=== PATIENT | male | born 1995 | race Caucasian/White ===

== ENCOUNTER 2016-07-10 21:48 | Emergency (ER) | payer SELFPAY ==
--- NOTE | 2016-07-10 23:45 | ERNOTE ---
Medical Problem HPI - General Chief Complaint: General Assessment Time Seen by Provider: 07/10/16 23:36 Source: patient Exam Limitations: no limitations - Immun/Allergies/Home Medications Immunizations: IMMUNIZATION HX Immunizations Up to Date Yes History of Influenza Vaccine No Hx Pneumococcal Vaccination No Allergies/Adverse Reactions: Allergies No Known Allergies Allergy (Verified 01/24/16 23:59) Home Medications: HOME MEDICATIONS Meloxicam [Mobic] 15 mg PO DAILY #30 tab 07/11/16 [Last Taken Unknown] - History of Present History Narrative: left upper chest wall pain since November or longer. Worse with activity/ movement of left arm Timing: getting worse Severity: moderate Modifying Factors - (Worsens): Present: movement Review of Systems - Review of Systems Constitutional: Present: no symptoms reported EYE: Present: no symptoms reported ENT: Present: no symptoms reported Respiratory: Present: cough. Absent: shortness of breath Cardiology: Present: See HPI Gastrointestinal/Abdominal: Present: no symptoms reported Genitourinary: Present: no symptoms reported Musculoskeletal: Absent: back pain, neck pain Neurological: Present: no symptoms reported Endocrine: Present: no symptoms reported Hematologic/Lymphatic: Present: no symptoms reported Psych: Present: no symptoms reported - Patient's Past Medical History Patient History - Medical: No pertinent hx Patient History - Cardiac/Respiratory: Pneumonia Patient History - Cancer: No Hx of Cancer Patient History - Surgical Procedures: EGD, Ear Tubes, Other Patient History - Other: None - Social History Living Situations: home Abuse History: No History of abuse Psych History: No pertinent hx Does anyone smoke in the home?: Yes Smoking Status: Former smoker Have you smoked in the past 12 months: Yes Do you dip or chew tobacco: No Patient requests Smoking Cessation Consult: No Initiate information on Smoking Cessation: No Alcohol Use: none Drug Use: none - Immunizations Immunizations Up to Date: Yes Hx Pneumococcal Vaccination: No History of Influenza Vaccine: No Physical Exam - Physical Exam General Appearance: Present: wd/wn, alert, no apparent distress Eye Exam: Normal inspection: bilateral, PERRL: bilateral Neck: Present: normal inspection, nontender, supple Respiratory: Present: no respiratory distress, normal breath sounds, no accessory muscle use, lungs clear Cardiovascular/Chest: Present: regular rate, rhythm, no murmur, normal peripheral pulses Gastrointestinal/Abdominal: Present: normal bowel sounds, nontender, nondistended Back Exam: Present: normal inspection, normal range of motion Extremity Exam: Present: normal inspection, normal range of motion, no edema Neurological Exam: Present: alert, oriented, normal mood/affect, no motor/ sensory deficits Skin Exam: Present: normal color, warm/dry Lymphatic Exam: Present: no adenopathy ED Progress - Vital Signs Vital Signs: Vital Signs 07/10/16 07/10/16 21:55 23:19 Temperature 36.5 C 36.6 C Pulse Rate 78 82 Respiratory 18 18 Rate Blood Pressure 114/67 133/64 O2 Sat by Pulse 98 97 Oximetry - X-Ray X-Ray #1 X-Ray: ribs Interpretation: Interp. by me X-ray Comments: No fracture or dislocation. underlying cardiopulmonary structures appear normal - Progress/Reassessment Chief Complaint: General Assessment Departure - Departure Clinical Impression: Chest wall pain Disposition: Home Follow Up Needed Condition: Good Instructions: Chest Wall Pain, [id number] Additional Instructions: warm packs to sore areas 2-3 times a day may help loosen it up. See your regular doctor for possible referral to PT. Prescriptions: Meloxicam [Mobic] 15 mg PO DAILY #30 tab
--- OUTSIDE RECORDS SUMMARY | 2016-07-10 23:58 | XMS REPORT | Continuity of Care Document ---
:1995 Author Organization [facility] ([facility]) Address [address] [place] [address] Phone [phone] Care Team Providers Name Role Phone Sarthak Rachel Primary Care Provider [phone] Source Comments This disclosure is being made pursuant to the Care Everywhere program, applicable federal and state laws, and may not contain all informaitonavailable regarding this patient.[facility] ([facility]) Active Allergies and Adverse Reactions No Known Allergies Current Medications No known medications Active Problems Problem Noted Date Elevated TSH 09/10/2013 ADHD (attention deficit hyperactivity disorder) 09/10/2013 ODD (oppositional defiant disorder) 09/10/2013 Obesity, morbid, BMI 40.0-49.9 09/10/2013 Social History Tobacco Use Types Packs/Day Years Used Date Never Smoker Smokeless Tobacco: Never Used Last Filed Vital Signs Vital Sign Reading Time Taken Blood Pressure 129/65 09/02/2013 2:34 PM CDT Pulse 72 09/02/2013 2:34 PM CDT Temperature 36.5 C (97.7 F) 09/02/2013 2:34 PM CDT Respiratory Rate 26 09/02/2013 2:34 PM CDT Height 1.762 m (5' 9.36") 09/02/2013 2:34 PM CDT Weight 136.941 kg (301 lb 14.4 oz) 09/02/2013 2:34 PM CDT Body Mass Index 44.11 09/02/2013 2:34 PM CDT Oxygen Saturation - - Plan of Care Health Maintenance Due Date Last Done Comments Hepatitis B Vaccine (1 of 3 - Primary Series) 1996 HPV Vaccine (1 of 3 - Male 3 Dose Series) 05/02/2007 Tdap Vaccine 05/02/2007 Meningococcal Vaccine (1 of 1) 2012 Lipid Disorder Screening 2014 MMR Vaccine 2014 Td Vaccine 2014 Varicella Vaccine (1 of 2 - Adult - No Evidence of 2014 Immunity) Influenza Vaccine: Seasonal (#1) 09/17/2015 Results from Last 3 Months Not on file
[2016-07-11 01:15] VITALS: BP 136/64
== END 2016-07-11 01:05 | disposition home or self-care (01) ==
LOC: ER 21:48
DX: R07.89 Other chest pain (principal); Z87.891 Personal history of nicotine dependence

== ENCOUNTER 2016-07-20 20:42 | Emergency (ER) | payer SELFPAY ==
[2016-07-20 20:57] VITALS: BP 152/77
--- NOTE | 2016-07-20 21:01 | ERNOTE ---
Date of Service: 07/20/16 Time Seen by Provider: 07/20/16 20:59 Stated Complaint: TIGHTNESS IN THROAT, SINUS, COUGH Presenting Symptoms:: cough, sore throat Source: patient, RN notes reviewed Exam Limitations: no limitations Immunizations: IMMUNIZATION HX Immunizations Up to Date Yes History of Influenza Vaccine No Hx Pneumococcal Vaccination Yes Allergies/Adverse Reactions: Allergies No Known Allergies Allergy (Verified 07/20/16 20:58) Home Medications: HOME MEDICATIONS NK [No Home Medication] 07/20/16 [Last Taken Unknown] - History of Present Ilness Narrative: 21 y/o male ambulatory to the ED for a cough that began 2 days ago. He reports being around a friend with similar symptoms. Date (Duration): 07/18/16 Severity: mild Frequency/Possible Cause: Reports: illness exposure Associated Symptoms: Reports: cough, nasal congestion, nasal drainage, headache , sore throat. Denies: chest pain/soreness, shortness of breath, wheezing, facial pain, dizziness, lightheadedness, earache, muscle aches, fever/chills Prior Treatment: Denies: recently seen, currently on antibiotics Review of Systems - Review of Systems Constitutional: Present: fatigue, malaise EYE: Present: no symptoms reported ENT: Present: See HPI Respiratory: Present: See HPI Cardiology: Present: no symptoms reported Gastrointestinal/Abdominal: Absent: nausea, vomiting, abdominal pain Genitourinary: Present: no symptoms reported Musculoskeletal: Present: See HPI Skin: Absent: rash, lesions Neurological: Present: See HPI Endocrine: Present: no symptoms reported Hematologic/Lymphatic: Present: no symptoms reported Psych: Present: no symptoms reported - Patient's Past Medical History Patient History - Medical: Obesity Patient History - Cardiac/Respiratory: Pneumonia Patient History - Cancer: No Hx of Cancer Patient History - Surgical Procedures: EGD, Ear Tubes, Other Patient History - Other: None - Social History Living Situations: home Abuse History: No History of abuse Psych History: No pertinent hx Does anyone smoke in the home?: Yes Smoking Status: Never smoker Alcohol Use: none Drug Use: none - Immunizations Immunizations Up to Date: Yes Hx Pneumococcal Vaccination: Yes History of Influenza Vaccine: No Physical Exam - Physical Exam General Appearance: Present: wd/wn, alert, no apparent distress, obese Eye Exam: Normal inspection: bilateral Ears, Nose, Throat: Present: nasal congestion, pharyngeal erythema. Absent: abnormal TM (R), abnormal TM (L), sinus pain/drainage, pharyngeal swelling Neck: Present: normal inspection, nontender, supple, full range of motion. Absent: lymphadenopathy (R), lymphadenopathy (L) Respiratory: Present: no respiratory distress, normal breath sounds, no accessory muscle use, lungs clear Cardiovascular/Chest: Present: regular rate, rhythm, no murmur Extremity Exam: Present: normal inspection, no edema Neurological Exam: Present: alert, oriented, normal mood/affect, no motor/ sensory deficits Skin Exam: Present: normal color, warm/dry ED Progress - Vital Signs Patient's Vital Signs:: I have reviewed the patient's vital signs. Vital Signs: Vital Signs 07/20/16 20:46 Temperature 36.2 C L Pulse Rate 103 H Respiratory 22 H Rate Blood Pressure 152/77 - Progress/Reassessment Chief Complaint: Upper Respiratory Symptoms Progress:: Unchanged Departure - Departure Clinical Impression: Acute nasopharyngitis (common cold) Disposition: Home self-care Condition: Good Instructions: Upper Respiratory Infection, Adult, [id number], Form - Excuse from Work, School, or Physical Activity
--- OUTSIDE RECORDS SUMMARY | 2016-07-20 21:06 | XMS REPORT | Continuity of Care Document ---
:1995 Author Organization [facility] ([facility]) Address [address] [place] [address] Phone [phone] Care Team Providers Name Role Phone Sarthak Rachel Primary Care Provider [phone] Source Comments This disclosure is being made pursuant to the Care Everywhere program, applicable federal and state laws, and may not contain all informaitonavailable regarding this patient.[facility] ([facility]) Active Allergies and Adverse Reactions No Known [...]
== END 2016-07-20 21:10 | disposition home or self-care (01) ==
LOC: ER 20:42
DX: J00 Acute nasopharyngitis [common cold] (principal); Z77.22 Contact with and (suspected) exposure to environmental tobacco smoke (acute) (chronic)